=== PATIENT | female | born 1990 | race Caucasian/White ===

== ENCOUNTER 2017-10-12 08:20 | Emergency (ER) | payer SELFPAY ==
[~2017-10-12] VITALS: Ht 157.5 cm; Wt 71.0 kg
[2017-10-12] MEDS ORDERED: OMEP20CA10 PO (08:41)
[2017-10-12] MEDS ORDERED: KETOROLAC 60MG/2ML VIAL IM ONE (09:00)
[2017-10-12] MEDS ORDERED: DIAZEPAM 5 MG TABLET PO ONE (09:00)
[2017-10-12] MEDS ORDERED: PREDNISONE 20MG TABLET PO ONE (09:00)
[2017-10-12] MEDS ORDERED: ONDANSETRON 4MG ODT PO ONE (09:00)
[2017-10-12 09:43] VITALS: BP 97/44
== END 2017-10-12 10:32 | disposition home or self-care (01) ==
LOC: ER 09:18
DX: M54.31 Sciatica, right side (principal); Z90.49 Acquired absence of other specified parts of digestive tract; F17.200 Nicotine dependence, unspecified, uncomplicated
CPT/HCPCS: 81025; 96372; 99284; J1885; J7512; Q0162